=== PATIENT | female | born 1970 | race Caucasian/White ===

== ENCOUNTER 2020-09-19 11:26 | Inpatient (IN) | payer MEDICARE, OTHER ==
[~2020-09-19] VITALS: Ht 154.9 cm; Wt 85.7 kg
--- NOTE | 2020-09-19 13:25 | NUR ---
SOLVENT PROCESS EXTRACTOR OPERATOR NOTE- 50 Y/O FEMALE ADMITTED 5150 GD VIA AMBULANCE FROM [facility] . PT HOMELESS AND FOUND TO BE STATING SHE FEELS OVERWHELMED AND HOPELESS. STATED IF SHE RETURNS TO STREETS "ILL GET A BOTTLE OF TYLENOL AND TAKE THE WHOLE THING" ON FACE TO FACE ASSESSMENT, SHE IS ALERT ORIENTED TO PERSON PLACE TIME PURPOSE. GUARDED AND PASSIVE. ANSWERS ALL QUESTIONS . DENIES SI HI AH VH. STATED "I WAS THINKING ABOUT SUICIDE BUT NOT NOW." HER VS ARE - BP- 157/87, HR- 85, RR- 20, T- 98.1, SATURATION 98% RA. PT SKIN INTACT, AMBULATORY STEADY GAIT. REFUSES VACCINES. REQUESTED SHOWER AND PLACEMENT . 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 PT HAD MARIJUANA , ALCOHOL CIGARETTES AND LIGHTERS. ALL WAS LOCKED UP IN PT LOCKER. VALUABLES SENT TO SAFE. PT RIGHTS HANDBOOK GIVEN. ORIENTATION TO UNIT COMPLETED. VERBALIZED UNDERSTANDING. PT DOESN'T WANT ANYONE TO KNOW SHES ADMITTED. ENCOURAGE AND ASSIST. ORDERS RECEIVED FROM DR GUTIERREZ AND DR COFFMAN INFORMED OF ADMIT.
[2020-09-19] MEDS ORDERED: INSU100I14 SQ (14:23)
[2020-09-19] MEDS ORDERED: MULT-447 PO (14:23)
[2020-09-19] MEDS ORDERED: INSU100V7 SQ (14:23)
[2020-09-19] MEDS ORDERED: OMEG-167 PO (14:23)
[2020-09-19] MEDS ORDERED: LOSA25TA27 PO (14:23)
[2020-09-19] MEDS ORDERED: BLOOD SUGAR DIAGNOSTIC 1 EACH STRIP IN ONE (14:30)
[2020-09-19] MEDS ORDERED: LORAZEPAM 0.5 MG TABLET PO PRN (14:30)
[2020-09-19] MEDS ORDERED: MAGNESIUM HYDROXIDE 30 ML UDC PO PRN (14:30)
[2020-09-19] MEDS ORDERED: MAG HYDROX/AL HYDROX/SIMETH 30 ML UDC PO PRN (14:30)
[2020-09-19 16:00] VITALS: BP 144/60
[2020-09-19] MEDS ORDERED: DEXTROSE 50%-WATER 50 ML DISP.SYRIN IV PRN (17:00)
[2020-09-19] MEDS: BLOOD SUGAR DIAGNOSTIC 1 EACH STRIP IN SCH ×2 (17:59→21:47)
[2020-09-19] MEDS: INSULIN REGULAR, HUMAN 100 UNIT/ML 3 ML VIAL SQ PRN ×2 (18:00→22:01)
--- NOTE | 2020-09-19 21:30 | NUR ---
RN notes Pt refused VS due at 1999. Offered multiple times. Explained risks and benefits. Pt keep refusing. Will continue to monitor.
[2020-09-19] MEDS: ARIPIPRAZOLE 5 MG TABLET PO SCH (21:47)
[2020-09-19] MEDS: INSULIN GLARGINE, 100 UNIT/ML CARTRIDGE SQ SCH (21:50)
[2020-09-20 08:00] VITALS: BP 143/81
[2020-09-20] MEDS: BLOOD SUGAR DIAGNOSTIC 1 EACH STRIP IN SCH (08:21)
[2020-09-20] MEDS: INSULIN REGULAR, HUMAN 100 UNIT/ML 3 ML VIAL SQ PRN ×2 (08:24→12:09)
[2020-09-20] MEDS: LOSARTAN POTASSIUM 25 MG TABLET PO SCH (09:48)
[2020-09-20] MEDS: MULTIVIT W/MINERALS 1 TAB TABLET PO SCH (09:48)
[2020-09-20] MEDS ORDERED: DEXTROSE 50%-WATER 50 ML DISP.SYRIN IV PRN (11:30)
[2020-09-20 11:40] LABS: BASOPHILS # (AUTO) 0.1 /CMM (0.0-0.2); BASOPHILS % (AUTO) 1.4 % (0.0-2.0); EOSINOPHILS % (AUTO) 1.1 % (0.0-6.0); HEMATOCRIT 39 % (33-45); HEMOGLOBIN 13.1 g/dL (11.5-14.8); LYMPHOCYTES # (AUTO) 1.6 /CMM (0.8-4.8); LYMPHOCYTES % (AUTO) 32.4 % (20.0-44.0); MEAN CORPUSCULAR HGB CONC 33 g/dl (31.0-36.0); MEAN CORPUSCULAR VOLUME 91 fL (82-100); MONOCYTES # (AUTO) 0.3 /CMM (0.1-1.30); MONOCYTES % (AUTO) 5.9 % (2.0-12.0); NEUTROPHILS # (AUTO) 2.9 /CMM (1.8-8.9); NEUTROPHILS % (AUTO) 59.2 % (43.0-81.0); PLATELET COUNT (AUTO) 298 /CMM (150-450); RED BLOOD CELL COUNT(AUTO) 4.36 MIL/uL (4.0-5.2); WHITE BLOOD COUNT (AUTO) 4.8 K/uL (4.3-11.0)
[2020-09-20] MEDS: BLOOD SUGAR DIAGNOSTIC 1 EACH STRIP VI SCH ×3 (11:43→22:08)
[2020-09-20 12:00] LABS: ALBUMIN 3.1 g/dL (3.4-5.0); BILIRUBIN,TOTAL 0.4 mg/dL (0.2-1.0); CALCIUM, SERUM 9.1 mg/dL (8.5-10.1); CREATININE 0.9 mg/dL (0.6-1.3); MAGNESIUM 1.8 mg/dL (1.8-2.4); PHOSPHORUS 3.9 mg/dL (2.5-4.9); TOTAL PROTEIN, SERUM 7.1 g/dL (6.4-8.2)
[2020-09-20 12:10] LABS: THYROID STIMULATING HORMONE 1.462 uIU/mL (0.358-3.74)
[2020-09-20 16:00] VITALS: BP 142/101
--- NOTE | 2020-09-20 16:29 | NUR ---
IN TV RM. MOST OF THE AFTERNOON,BUT ISOLATIVE.
[2020-09-20] MEDS: *INSULIN REGULAR(HUMULIN R)HUM 100 UNIT/ML VIAL SQ PRN ×2 (17:37→22:22)
[2020-09-20 20:02] VITALS: BP 148/66
[2020-09-20] MEDS: ARIPIPRAZOLE 5 MG TABLET PO SCH (22:00)
[2020-09-20] MEDS: INSULIN GLARGINE, 100 UNIT/ML CARTRIDGE SQ SCH (22:22)
--- NOTE | 2020-09-21 06:44 | NUR ---
GPS RN CLOSING NOTES: PATIENT LAYING QUIETLY ON BED, A/O X3. PATIENT SLEPT 6HR THIS SHIFT. NO C/O PAIN. MED COMPLIANT THIS SHIFT. NO S/S OF DISTRESS. RESPIRATION EVEN AND UNLABORED WITH EQUAL RISE AND FALL OF THE CHEST ON ROOM AIR. ALL PATIENT CARE NEEDS HAVE BEEN MET ANTICIPATED. WILL CONTINUE TO MONITOR FOR SAFETY, MOOD AND BEHAVIOR AND ENDORSE TO AM SHIFT.
[2020-09-21 08:00] VITALS: BP 132/65
[2020-09-21] MEDS: INSULIN REGULAR, HUMAN 100 UNIT/ML 3 ML VIAL SQ PRN ×2 (08:05→17:04)
[2020-09-21] MEDS: BLOOD SUGAR DIAGNOSTIC 1 EACH STRIP VI SCH ×4 (08:20→22:33)
[2020-09-21] MEDS: MULTIVIT W/MINERALS 1 TAB TABLET PO SCH (09:44)
[2020-09-21] MEDS: LOSARTAN POTASSIUM 25 MG TABLET PO SCH (09:44)
[2020-09-21 16:00] VITALS: BP 146/64
[2020-09-21 20:24] VITALS: BP 149/94
[2020-09-21] MEDS: INSULIN GLARGINE, 100 UNIT/ML CARTRIDGE SQ SCH (22:00)
[2020-09-21] MEDS: ARIPIPRAZOLE 5 MG TABLET PO SCH (22:26)
--- NOTE | 2020-09-21 22:40 | NUR ---
GPS RN NOTES: PATIENT SU501UB/DL. PT. REFUSED PM LANTUS AND SLIDING SCALE REGULAR INSULIN. PER PT. "I KNOW MY BODY, IF I TAKE INSULIN MY BLOOD SUGAR WILL DROP TO 60". WILL CONTINUE TO MONITOR.
--- NOTE | 2020-09-22 06:29 | NUR ---
GPS RN CLOSING NOTES: PATIENT AWAKE, A/O X3. PATIENT SLEPT 7HR THIS SHIFT. PATIENT REFUSED WEEKLY SKIN ASSESSMENT, PER PT. "MY SKIN IS OKAY". NO C/O PAIN THIS SHIFT. PATIENT WAS MED COMPLIANT THIS SHIFT. NO S/S OF DISTRESS. RESPIRATION EVEN AND UNLABORED WITH EQUAL RISE AND FALL OF THE CHEST ON ROOM AIR. ALL PATIENT CARE NEEDS HAVE BEEN MET ANTICIPATED. WILL CONTINUE TO MONITOR FOR SAFETY, MOOD AND BEHAVIOR AND ENDORSE TO AM SHIFT.
[2020-09-22 08:00] VITALS: BP 137/92
[2020-09-22] MEDS: BLOOD SUGAR DIAGNOSTIC 1 EACH STRIP VI SCH ×4 (08:00→22:20)
[2020-09-22] MEDS: INSULIN REGULAR, HUMAN 100 UNIT/ML 3 ML VIAL SQ PRN ×3 (08:02→17:08)
[2020-09-22] MEDS: MULTIVIT W/MINERALS 1 TAB TABLET PO SCH (08:55)
[2020-09-22] MEDS: LOSARTAN POTASSIUM 25 MG TABLET PO SCH (08:56)
--- NOTE | 2020-09-22 09:53 | NUR ---
Substance Abuse Intervention: SW conducted a substance abuse intervention for this pt due to her daily cannabis use.
--- NOTE | 2020-09-22 10:33 | NUR ---
Initial Discharge Plan: Pt is currently homeless and states that she wants to be discharged to [place], [place] where she has family. SW will work with the pt and the MD regarding appropriate discharge planning. SW will form a safe and proper discharge for the pt.
--- NOTE | 2020-09-22 12:44 | NUR ---
Individual Intervention: SW informed the pt that she is not being discharged today as her MD has not provided a discharge order. SW informed the pt that she will need to stabilize first and the MD will discharge her once he feels that she has improved. Pt repeatedly stated that she does not want placement and that she wants to be discharged today to [place] and SW expressed multiple times that she will need to wait.
[2020-09-22] MEDS: LORAZEPAM 1 MG TABLET PO PRN (12:58)
[2020-09-22 16:38] VITALS: BP 137/79
[2020-09-22] MEDS: METFORMIN 500 MG TABLET PO SCH (17:04)
[2020-09-22 20:00] VITALS: BP 142/64
[2020-09-22] MEDS: ARIPIPRAZOLE 5 MG TABLET PO SCH (21:34)
[2020-09-22] MEDS: INSULIN GLARGINE, 100 UNIT/ML CARTRIDGE SQ SCH (22:00)
--- NOTE | 2020-09-22 22:22 | NUR ---
GPS RN NOTES: BS97MG/DL. PT. REFUSED LANTUS. WILL CONTINUE TO MONITOR.
--- NOTE | 2020-09-23 06:27 | NUR ---
GPS RN CLOSING NOTES: PATIENT CURRENTLY SLEEPING. PATIENT SLEPT 6HR AND WAS MED COMPLIANT THIS SHIFT. NO BEHAVIORAL ISSUES AND NO C/O PAIN THIS SHIFT. NO S/S OF DISTRESS. RESPIRATION EVEN AND UNLABORED WITH EQUAL RISE AND FALL OF THE CHEST ON ROOM AIR. ALL PATIENT CARE NEEDS HAVE BEEN MET ANTICIPATED. WILL CONTINUE TO MONITOR FOR SAFETY, MOOD AND BEHAVIOR AND ENDORSE TO AM SHIFT.
[2020-09-23 08:00] VITALS: BP 125/77
[2020-09-23] MEDS: INSULIN REGULAR, HUMAN 100 UNIT/ML 3 ML VIAL SQ PRN ×3 (08:38→17:41)
[2020-09-23] MEDS: BLOOD SUGAR DIAGNOSTIC 1 EACH STRIP VI SCH ×4 (08:43→22:45)
[2020-09-23] MEDS: ACETAMINOPHEN 325 MG TABLET PO PRN (09:02)
[2020-09-23] MEDS: METFORMIN 500 MG TABLET PO SCH ×3 (09:02→17:39)
[2020-09-23] MEDS: MULTIVIT W/MINERALS 1 TAB TABLET PO SCH (09:02)
[2020-09-23] MEDS: LOSARTAN POTASSIUM 25 MG TABLET PO SCH (09:03)
--- NOTE | 2020-09-23 10:20 | NUR ---
given tylenol 650 mg po for toothache.
[2020-09-23 16:00] VITALS: BP 142/72
[2020-09-23 20:40] VITALS: BP 161/71
[2020-09-23] MEDS: ARIPIPRAZOLE 5 MG TABLET PO SCH (21:40)
[2020-09-23] MEDS: DIVALPROEX SODIUM 500 MG TABLET.DR PO SCH (21:40)
[2020-09-23] MEDS: TEMAZEPAM 7.5 MG CAPSULE PO PRN (21:40)
[2020-09-23] MEDS: INSULIN GLARGINE, 100 UNIT/ML CARTRIDGE SQ SCH (22:23)
[2020-09-23] MEDS: *INSULIN REGULAR(HUMULIN R)HUM 100 UNIT/ML VIAL SQ PRN (22:25)
[2020-09-24] MEDS: BLOOD SUGAR DIAGNOSTIC 1 EACH STRIP VI SCH ×4 (07:27→21:36)
[2020-09-24] MEDS: INSULIN REGULAR, HUMAN 100 UNIT/ML 3 ML VIAL SQ PRN ×3 (07:31→17:05)
[2020-09-24 08:00] VITALS: BP 134/74
[2020-09-24] MEDS: METFORMIN 500 MG TABLET PO SCH ×2 (08:33→17:02)
[2020-09-24] MEDS: LOSARTAN POTASSIUM 25 MG TABLET PO SCH (08:34)
[2020-09-24] MEDS: MULTIVIT W/MINERALS 1 TAB TABLET PO SCH (08:34)
[2020-09-24] MEDS: DIVALPROEX SODIUM 500 MG TABLET.DR PO SCH ×2 (08:34→21:35)
[2020-09-24] MEDS: ACETAMINOPHEN 325 MG TABLET PO PRN ×2 (11:08→17:02)
--- NOTE | 2020-09-24 11:09 | NUR ---
RN NOTE; PAIN MEDICATED WITH TYLENOL PRN FOR TOOTH PAIN
--- NOTE | 2020-09-24 14:01 | NUR ---
[facility] Referral: DONITA faxed a referral to [facility] with attn to Armen to the fax number: [phone].
--- NOTE | 2020-09-24 15:40 | NUR ---
[facility] Contact: Armen ([phone]) from [facility] contacted the SW and stated that the pt was accepted to a board and care in the [place] for $925. She stated that the pt will have to provide the money at the time of discharge from the hospital. SW stated that she will inform her when the pt is being discharged.
[2020-09-24 16:00] VITALS: BP 143/81
[2020-09-24 21:06] VITALS: BP 124/71
[2020-09-24] MEDS: ARIPIPRAZOLE 5 MG TABLET PO SCH (21:35)
[2020-09-24] MEDS: INSULIN GLARGINE, 100 UNIT/ML CARTRIDGE SQ SCH (21:36)
[2020-09-25 07:08] LABS: CALCIUM, SERUM 8.9 mg/dL (8.5-10.1); CREATININE 0.9 mg/dL (0.6-1.3); MAGNESIUM 1.8 mg/dL (1.8-2.4); PHOSPHORUS 4.3 mg/dL (2.5-4.9); POTASSIUM 4.7 mmol/L (3.5-5.1)
[2020-09-25 07:22] LABS: THYROID STIMULATING HORMONE 1.933 uIU/mL (0.358-3.74); URIC ACID 3.6 mg/dL (2.6-7.2)
[2020-09-25] MEDS: BLOOD SUGAR DIAGNOSTIC 1 EACH STRIP VI SCH ×4 (07:57→21:59)
[2020-09-25 08:00] VITALS: BP 116/71
[2020-09-25] MEDS: METFORMIN 500 MG TABLET PO SCH ×2 (08:03→16:35)
[2020-09-25] MEDS: LOSARTAN POTASSIUM 25 MG TABLET PO SCH (08:03)
[2020-09-25] MEDS: MULTIVIT W/MINERALS 1 TAB TABLET PO SCH (08:03)
[2020-09-25] MEDS: DIVALPROEX SODIUM 500 MG TABLET.DR PO SCH ×2 (08:03→21:53)
[2020-09-25] MEDS: ACETAMINOPHEN 325 MG TABLET PO PRN ×3 (08:03→23:05)
[2020-09-25] MEDS: INSULIN REGULAR, HUMAN 100 UNIT/ML 3 ML VIAL SQ PRN ×3 (08:07→16:53)
--- NOTE | 2020-09-25 14:01 | NUR ---
Probable Cause Hearing: Pts [id number] hold was upheld for grave disability.
[2020-09-25 16:00] VITALS: BP 133/80
[2020-09-25 20:58] VITALS: BP 155/84
[2020-09-25] MEDS: ARIPIPRAZOLE 5 MG TABLET PO SCH (21:54)
[2020-09-25] MEDS: *INSULIN REGULAR(HUMULIN R)HUM 100 UNIT/ML VIAL SQ PRN (22:03)
[2020-09-25] MEDS: INSULIN GLARGINE, 100 UNIT/ML CARTRIDGE SQ SCH (22:03)
[2020-09-25] MEDS: TEMAZEPAM 7.5 MG CAPSULE PO PRN (22:35)
--- NOTE | 2020-09-25 22:35 | NUR ---
GPS RN NOTE PT REQUESTED AID FOR SLEEP, PRN RESTORIL ADMINISTERED ORDERED. Addendum: 09/25/20 at 2325 by JOYA ESCAMILLA RN 7.5 MG ORDERED
--- NOTE | 2020-09-25 23:41 | NUR ---
GPS RN NOTE PT AT THIS TIME IS REQUESTING COUGH SYRUP FOR COUGH AND CONGESTION, CALLED [facility] TO PAGE SKEIN STRAIGHTENER MD ASHBY, WILL WAIT FOR CALL BACK FOLLOW UP AT THIS TIME.
--- NOTE | 2020-09-26 01:10 | NUR ---
GPS RN NOTE RECEIVED ORDERS FROM PROBATE PARALEGAL ISMA REYES, ORDERS FOR ROBITUSSIN, GUAIFENESIN DMETHORPHAN 5ML PO Q6H PRN FOR COUGH CARRIED OUT Addendum: 09/26/20 at 0143 by JOYA ESCAMILLA RN NOTIFIED PT OF NEW ORDER FOR COUGH AVAILABLE, PT AT THIS TIME PT DENIES NEED FOR MEDICATION VERBALIZES WILL REQUEST IF NEEDED
[2020-09-26] MEDS: GUAIFENESIN/D-METHORPHAN HB 5 ML UDC PO PRN ×2 (03:47→20:08)
--- NOTE | 2020-09-26 03:54 | NUR ---
GPS RN NOTE ROBITUSSIN 5ML PRN PO GIVEN FOR PT C/O OF COUGH
[2020-09-26] MEDS: ACETAMINOPHEN 325 MG TABLET PO PRN ×3 (05:21→20:43)
[2020-09-26] MEDS: BLOOD SUGAR DIAGNOSTIC 1 EACH STRIP VI SCH ×4 (07:27→22:18)
[2020-09-26 08:00] VITALS: BP 106/83
[2020-09-26] MEDS: INSULIN REGULAR, HUMAN 100 UNIT/ML 3 ML VIAL SQ PRN ×3 (08:10→16:48)
[2020-09-26] MEDS: DIVALPROEX SODIUM 500 MG TABLET.DR PO SCH ×2 (08:11→21:10)
[2020-09-26] MEDS: MULTIVIT W/MINERALS 1 TAB TABLET PO SCH (08:11)
[2020-09-26] MEDS: METFORMIN 500 MG TABLET PO SCH ×2 (08:11→16:22)
[2020-09-26] MEDS: LOSARTAN POTASSIUM 25 MG TABLET PO SCH (08:12)
--- NOTE | 2020-09-26 14:41 | NUR ---
GPS/RN-NOTES PATIENT C/O TOOTHACHE AND REQUESTING FOR TYLENOL, TYLENOL 650MG P.O GIVEN PRN ORDER. WILL CONT. MONITORING FOR SAFETY.
--- NOTE | 2020-09-26 15:15 | NUR ---
GPS/RN-NOTES PATIENT WATCHING TV IN THE DAY ROOM,DENIES ANY PAIN OR DISCOMFORT AT THIS TIME.
[2020-09-26 16:00] VITALS: BP 123/87
[2020-09-26 19:50] VITALS: BP 131/67
--- NOTE | 2020-09-26 20:10 | NUR ---
RN NOTE: C/O COUGH PATIENT C/O COUGH & REQUESTED TO TAKE COUGH SYRUP, PRN ROBITUSSIN DM SYRUP ADMINISTERED ORDERED.
[2020-09-26 20:29] VITALS: BP 131/67
--- NOTE | 2020-09-26 20:44 | NUR ---
RN NOTE: TOOTHACHE PATIENT C/O TOOTHACHE, REQUESTED TO TAKE TYLENOL AT THIS TIME. PRN TYLENOL 650 MG PO ADMINISTERED. WILL CONTINUE TO MONITOR.
[2020-09-26] MEDS: ARIPIPRAZOLE 5 MG TABLET PO SCH (21:31)
[2020-09-26] MEDS: INSULIN GLARGINE, 100 UNIT/ML CARTRIDGE SQ SCH (22:00)
--- NOTE | 2020-09-26 22:24 | NUR ---
RN NOTE PATIENT'S BLOOD SUGAR IS 115 MG/DL. NO SLIDING SCALE COVERAGE NEEDED. PATIENT REFUSED SCHEDULED LANTUS AT 2200 WELL. OFFERED SNACK BUT PT. REFUSED AT THIS TIME, ONLY DRANK JUICE. CHARGE NURSE MADE AWARE.
[2020-09-26] MEDS: TEMAZEPAM 7.5 MG CAPSULE PO PRN (22:45)
--- NOTE | 2020-09-26 22:46 | NUR ---
RN NOTE: INSOMNIA PATIENT VERBALIZED THAT SHE IS UNABLE TO SLEEP & REQUESTED TO TAKE SLEEPING MEDICINE. PRN RESTORIL 7.5 MG 1 CAP PO ADMINISTERED. WILL CONTINUE TO MONITOR.
[2020-09-27 08:00] VITALS: BP 119/74
[2020-09-27] MEDS: BLOOD SUGAR DIAGNOSTIC 1 EACH STRIP VI SCH ×4 (08:08→21:53)
[2020-09-27] MEDS: METFORMIN 500 MG TABLET PO SCH ×2 (08:14→16:15)
[2020-09-27] MEDS: DIVALPROEX SODIUM 500 MG TABLET.DR PO SCH ×2 (08:15→21:12)
[2020-09-27] MEDS: MULTIVIT W/MINERALS 1 TAB TABLET PO SCH (08:15)
[2020-09-27] MEDS: INSULIN REGULAR, HUMAN 100 UNIT/ML 3 ML VIAL SQ PRN ×2 (08:17→12:05)
[2020-09-27] MEDS: LOSARTAN POTASSIUM 25 MG TABLET PO SCH (08:35)
[2020-09-27] MEDS: ACETAMINOPHEN 325 MG TABLET PO PRN (11:43)
--- NOTE | 2020-09-27 11:44 | NUR ---
GPS/RN-NOTES PATIENT C/O TOOTHACHE AND REQUESTING FOR TYLENOL, TYLENOL 650MG P.O GIVEN PRN ORDER. WILL CONT. MONITORING FOR SAFETY.
--- NOTE | 2020-09-27 12:30 | NUR ---
GPS/RN-NOTES PATIENT IN THE DAY ROOM WATCHING TV, CALM NO ACUTE DISTRESS NOTED. DENIES ANY PAIN OR DISCOMFORT AT THIS TIME.
[2020-09-27 16:00] VITALS: BP 117/75
[2020-09-27 20:00] VITALS: BP 134/73
[2020-09-27 20:38] VITALS: BP 134/73
--- NOTE | 2020-09-27 20:50 | NUR ---
RN NOTE PATIENT WOKE UP AT THIS TIME, HYPERVERBAL, LABILE, SINGING, DANCING, STATING," GOD IS WITH ME, GOD CAN DO ANYTHING, GOD CAN MAKE ME , GOD CAN GIVE ME A HUG, GOD CAN RESTORE MY LIFE & FIX EVERYTHING." OFFERED SNACK & JUICE TO THE PATIENT & TOLERATED WELL. WILL CONTINUE TO MONITOR.
[2020-09-27] MEDS: ARIPIPRAZOLE 5 MG TABLET PO SCH (21:43)
[2020-09-27] MEDS: INSULIN GLARGINE, 100 UNIT/ML CARTRIDGE SQ SCH (21:55)
--- NOTE | 2020-09-27 22:22 | NUR ---
RN NOTE PATIENT'S HS BLOOD SUGAR WAS 183 MG/DL, REFUSED TO TAKE 3 UNITS OF SSI FOR COVERAGE, AGREED TO TAKE LANTUS. PATIENT HAD SNACK & JUICES TOLERATED. WILL CONTINUE TO MONITOR FOR ANY CHANGES.
[2020-09-27] MEDS: TEMAZEPAM 7.5 MG CAPSULE PO PRN (22:40)
[2020-09-28 08:00] VITALS: BP 146/79
[2020-09-28] MEDS: MULTIVIT W/MINERALS 1 TAB TABLET PO SCH (09:43)
[2020-09-28] MEDS: METFORMIN 500 MG TABLET PO SCH ×2 (09:43→17:02)
[2020-09-28] MEDS: DIVALPROEX SODIUM 500 MG TABLET.DR PO SCH ×2 (09:43→21:21)
[2020-09-28] MEDS: LOSARTAN POTASSIUM 25 MG TABLET PO SCH (09:43)
[2020-09-28] MEDS: BLOOD SUGAR DIAGNOSTIC 1 EACH STRIP VI SCH ×4 (09:44→22:12)
[2020-09-28] MEDS: INSULIN REGULAR, HUMAN 100 UNIT/ML 3 ML VIAL SQ PRN ×2 (09:45→12:04)
[2020-09-28 16:00] VITALS: BP 131/87
[2020-09-28] MEDS: GUAIFENESIN/D-METHORPHAN HB 5 ML UDC PO PRN (20:09)
[2020-09-28] MEDS: ACETAMINOPHEN 325 MG TABLET PO PRN (20:09)
--- NOTE | 2020-09-28 20:13 | NUR ---
GPS RN NOTES: PATIENT C/O OF COUGH. ROBITUSSIN 5ML GIVEN PO PRN ORDERED AT 2008. WILL CONTINUE TO MONITOR.
--- NOTE | 2020-09-28 20:16 | NUR ---
GPS RN NOTES: PATIENT C/O OF HEADACHE. TYLENOL 325MG 2TABS/650MG GIVEN PO PRN ORDERED AT 2008. WILL CONTINUE TO MONITOR.
[2020-09-28 20:45] VITALS: BP 153/74
[2020-09-28] MEDS: ARIPIPRAZOLE 5 MG TABLET PO SCH (21:21)
[2020-09-28] MEDS: INSULIN GLARGINE, 100 UNIT/ML CARTRIDGE SQ SCH (22:00)
--- NOTE | 2020-09-28 22:15 | NUR ---
GPS RN NOTES: BS 110MG/DL. PATIENT REFUSED LANTUS. WILL CONTINUE TO MONITOR.
[2020-09-28] MEDS: TEMAZEPAM 7.5 MG CAPSULE PO PRN (22:18)
--- NOTE | 2020-09-28 22:19 | NUR ---
GPS RN NOTES PATIENT REQUESTED SLEEP MEDICATION. RESTORIL 7.5MG 1CAP GIVEN PO 22:20. WILL CONTINUE TO MONITOR.
[2020-09-29] MEDS: LORAZEPAM 1 MG TABLET PO PRN (02:04)
--- NOTE | 2020-09-29 02:07 | NUR ---
GPS RN NOTES PATIENT WOKE UP AND REPORTED FEELING ANXIOUS, REQUESTED FOR MEDICATION. ATIVAN 1MG/1TAB GIVEN PO PRN ORDERED AT 0204. WILL CONTINUE TO MONITOR.
[2020-09-29] MEDS: GUAIFENESIN/D-METHORPHAN HB 5 ML UDC PO PRN (02:50)
[2020-09-29] MEDS: ACETAMINOPHEN 325 MG TABLET PO PRN (02:50)
--- NOTE | 2020-09-29 02:52 | NUR ---
GPS RN NOTES: PATIENT C/O OF GENERALIZED PAIN AND COUGH. ROBITUSSIN 5ML AND TYLENOL 325MG 2TABS/650MG GIVEN PO PRN ORDERED AT 0250. WILL CONTINUE TO MONITOR.
--- NOTE | 2020-09-29 06:38 | NUR ---
GPS RN CLOSING NOTES: PATIENT IS AWAKE, ALERT AND ORIENTED X3. PATIENT SLEPT 6HR THIS SHIFT. SEEN IN UNIT AMBULATING. REFUSED WEEKLY SKIN ASSESSMENT. REFUSED LANTUS THIS SHIFT. NO S/S OF DISTRESS. RESPIRATION EVEN AND UNLABORED WITH EQUAL RISE AND FALL OF THE CHEST ON ROOM AIR. ALL PATIENT CARE NEEDS HAVE BEEN MET ANTICIPATED. WILL CONTINUE TO MONITOR FOR SAFETY, MOOD AND BEHAVIOR AND ENDORSE TO AM SHIFT.
[2020-09-29] MEDS: BLOOD SUGAR DIAGNOSTIC 1 EACH STRIP VI SCH (07:43)
[2020-09-29] MEDS: *INSULIN REGULAR(HUMULIN R)HUM 100 UNIT/ML VIAL SQ PRN (07:46)
[2020-09-29 08:00] VITALS: BP 139/71
[2020-09-29 08:27] VITALS: BP 139/71
[2020-09-29] MEDS: LOSARTAN POTASSIUM 25 MG TABLET PO SCH (08:27)
[2020-09-29] MEDS: METFORMIN 500 MG TABLET PO SCH (08:27)
[2020-09-29] MEDS: DIVALPROEX SODIUM 500 MG TABLET.DR PO SCH (08:27)
[2020-09-29] MEDS: MULTIVIT W/MINERALS 1 TAB TABLET PO SCH (08:27)
--- NOTE | 2020-09-29 09:49 | NUR ---
Independent Living Contact: DONITA contacted Ashley ([phone]) from [facility] and informed her that the pt is ready to be discharged today. DONITA stated that she would need to be picked up and taken to the bank to retrieve the funds for her stay. Ashley stated that can be arranged and that they would arrive around 12pm. DONITA then emailed her the pts face sheet, H&P, and medication list to .
--- NOTE | 2020-09-29 12:55 | NUR ---
GPS WAFER MOUNTER NOTE PT CLEARED FOR DISCHARGE TODAY. PT IS A/O X 3, VERBAL, SCOTTISH SPEAKING, ABLE TO MAKE NEEDS KNOWN WITH NO C/O PAIN OR S/SX OF ACUTE DISTRESS. PT DENIES ANY SI/HI AND AH/VH/TH. STATES SHE HAS NO PLANS. PT IS AGREEABLE TO DISCHARGE. ON ROOM AIR WITH NO S/SX OF RESPIRATORY DISTRESS. ID BAND/ARM BAND REMOVED. PT'S BELONGINGS LIST AND DISCHARGE PAPERWORK SIGNED, WITNESSED, COPIED AND FILED IN CHART AND GIVEN TO PT. PT GIVEN DISCHARGE INSTRUCTIONS AND EDUCATION WITH SUCCESSFUL RETURN DEMONSTRATION AND VERBALIZATION OF UNDERSTANDING. ALL PT'S BELONGINGS GIVEN TO PT AND ACCOUNTED FOR, PER PT "I HAVE EVERYTHING." ALL CARE, NEEDS, MEDICATIONS AND TREATMENTS GIVEN TO PT ORDERED. PT LEFT UNIT AT 1252, AMBULATORY WITH STEADY GAIT, ACCOMPANIED BY ME AND LIBBY SANDERS. PICKED UP BY [facility] [employer] [facility]IV[facility] ANIMAL SURGEON CHRISSY CORPHAI, LEFT VIA PRIVATE CAR. MD AND CHARGE NURSE AWARE. Addendum: 09/29/20 at 1359 by ASHER VELÁZQUEZ RN 50 YEAR OLD FEMALE DISCHARGED TO [facility] [address] [place] [address] IN STABLE CONDITION. COMPLIANT WITH MEDICATIONS, COOPERATIVE WITH TREATMENT PLANS. PATIENT DENIES SI/HI AND INSTRUCTED TO GO THE CLOSEST ER IF DEVELOPING SI/HI. BEHAVIOR IMPROVED, PSYCHIATRIC TX PLANS MET, MEDICAL TX PLANS DEFERRED FOR CONTINUAL MONITORING. EDUCATED PT ABOUT AFTER CARE PLAN (EXIT-CARE) AND COPY PROVIDED. RETURNED PERSONAL BELONGINGS TO PT. MEDICATIONS RECONCILED WITH DR. GUTIERREZ AND DR. AMADOR. REPORT GIVEN TO [facility] FOR CONTINUITY OF CARE. PT SIGNED DISCHARGE PAPERWORK. PT LEFT UNIT AT 1250 VIA PRIVATE CAR.
--- NOTE | 2020-09-29 13:01 | NUR ---
Discharge Note: Pt will be discharged to [facility] [place] at [address] [place] [address]; ([phone]). Pt will be picked up the pt around 12pm by the facility. Upon discharge, the pt appears to be in a euthymic mood and presents with an anxious affect. Pt denies suicidal and homicidal ideation as well as auditory and visual hallucinations. SW provided patient with the 2019 [facility] Program list. SW provided patient with a copy of the [facility] homeless directory which provides information on locations for hot meals, sack lunches, food pantries, and showers. DONITA provided an additional list of mental health clinics: [facility] [address] [place] [address] ([phone]); [facility] [address] [place] [address] ([phone]); a list of medical clinics; [facility] [address] [facility] [address], [place] [place], ; [facility] [address] [facility] DONITA Provided [facility] [address] [place] [address]: ([phone]). Patient was provided with a brief substance abuse intervention and referred to the following substance abuse programs: [facility] Substance Abuse Self-helpline ([phone]); [facility] [address] [place] [address] ([phone]); [facility] [address] [facility] [address] ([phone]); [facility] ([phone]); [facility] ([phone]); [facility] ([phone]); [facility] ([phone]). Pt appears to be appropriately dressed, well groomed, and ambulatory. Pt will be under the care of psychiatrist, Dr. Pandya, located at [address] [facility] [address], [place] [address]; and will follow up with java j2ee lead, Dr. [place], located at [address] [place] [address]; . Pt signed the homeless waiver and the multidisciplinary exit care form was done, printed, signed, and given to the patient.
== END 2020-09-29 12:50 | DRG 885 ==
LOC: GPS 13:22
PROVIDERS: ADMIT Psychiatry & Neurology Psychiatry; ATTEND Nurse Practitioner Acute Care
DX: F25.9 Schizoaffective disorder, unspecified (principal); E11.65 Type 2 diabetes mellitus with hyperglycemia; R45.851 Suicidal ideations; E87.1 Hypo-osmolality and hyponatremia; F32.9 Major depressive disorder, single episode, unspecified; I10 Essential (primary) hypertension; Z59.0 Homelessness; Z79.4 Long term (current) use of insulin; E66.9 Obesity, unspecified; Z72.0 Tobacco use; F12.10 Cannabis abuse, uncomplicated; K08.89 Other specified disorders of teeth and supporting structures; Z72.89 Other problems related to lifestyle; E86.1 Hypovolemia; Z91.14 Patient's other noncompliance with medication regimen
CPT/HCPCS: 36415; 80048-TC; 80053-TC; 80061-TC; 82962-TC; 83735-TC; 84100-TC; 84443-TC; 84550-TC; 85025-TC; 87081-TC; J1815